=== PATIENT | male | born 1965 | race Caucasian/White ===

== ENCOUNTER 2019-01-31 17:13 | Emergency (ER) | payer OTHER ==
[~2019-01-31] VITALS: Ht 182.9 cm; Wt 69.2 kg
[~2019-01-31 17:13] MED LIST: ASPI325T32 PO; LORA1TAB PO
[2019-01-31 17:38] VITALS: Ht 182.9 cm; Wt 69.2 kg
[2019-01-31] MEDS ORDERED: KETOROLAC 30 MG INJ IM STA (20:57)
[2019-01-31] MEDS ORDERED: CEPH-443 PO (20:58)
[2019-01-31] MEDS ORDERED: IBUP-1542 PO (20:58)
[2019-01-31] MEDS ORDERED: SULF1TAB31 PO (20:58)
[2019-01-31] MEDS ORDERED: DIPHTH/TET/ACEL PERTUSS (ADULT) 0.5 ML VIAL IM* ONE (21:00)
[2019-01-31] MEDS ORDERED: CEPHALEXIN 500 MG CAP PO ONE (21:00)
[2019-01-31] MEDS ORDERED: TRIMETHOPRIM/SULFAMETHOX (DS) TAB PO ONE (21:00)
[2019-01-31 21:49] VITALS: BP 122/86; PULSE 93; RESP 20
--- NOTE | 2019-01-31 22:55 | ERD ---
ER Documentation Chief Complaint Chief Complaint RLE WOUND WITH S/S OF INFECTION HPI Patient is a 54-year-old male with no medical problems who presents with a right leg ulcer. There is redness around the ulcer. It started with bilateral leg itchiness a few days ago and he was scratching both of his legs. He then started with the ulcer and swelling. He said that it is painful. He has no fevers. He was trying alcohol in the wound. Upon review of old medical records this is the patient's fifth visit to the ER since 2009. His primary doctor is Dr. Jake Vega. ROS All systems reviewed and are negative except as per history of present illness. Medications Home Meds Active Scripts Sulfamethoxazole/Trimethoprim* (Bactrim Ds* Tablet) 1 Each Tablet, 1 TAB PO BID, #14 TAB Prov:MARIBELL CORONA MD 01/31/19 Cephalexin* (Keflex*) 500 Mg Capsule, 500 MG PO QID for 7 Days, CAP Prov:MARIBELL CORONA MD 01/31/19 Ibuprofen* (Motrin*) 600 Mg Tab, 600 MG PO Q6H PRN for PAIN AND OR ELEVATED TEMP, #30 TAB Prov:MARIBELL CORONA MD 01/31/19 Lorazepam* (Lorazepam*) 1 Mg Tablet, 1 MG PO Q8 for 7 Days, TAB Prov:MARIA ZAMARRIPA MD 07/06/15 Reported Medications Aspirin* (Aspirin* EC) 325 Mg Tab, 325 MG PO DAILY, TAB 07/06/15 Allergies Allergies: Coded Allergies: No Known Drug Allergies (Verified Allergy, Unknown, 07/06/15) PMhx/Soc Medical and Surgical Hx: pt denies Medical Hx History of Surgery: No Anesthesia Reaction: No Hx Neurological Disorder: No Hx Respiratory Disorders: No Hx Cardiac Disorders: No Hx Psychiatric Problems: No Hx Miscellaneous Medical Probl: No Hx Alcohol Use: Yes (daily) Hx Substance Use: Yes (teenage years) Hx Tobacco Use: Yes Smoking Status: Current every day smoker FmHx Family History: No diabetes Physical Exam Vitals Vital Signs Date Temp Pulse Resp B/P (MAP) Pulse Ox O2 O2 Flow FiO2 Time Delivery Rate 01/31/19 98.8 93 20 122/86 96 Room Air 21:49 (98) 01/31/19 99.2 98 16 152/82 95 17:38 (105) Physical Exam Const: No acute distress Head: Atraumatic Eyes: Normal Conjunctiva ENT: Normal External Ears, Nose and Mouth. Neck: Full range of motion. No meningismus. Resp: Clear to auscultation bilaterally Cardio: Regular rate and rhythm, no murmurs Abd: Soft, non tender, non distended. Normal bowel sounds Skin: 2 x 2 cm ulcer to the right leg with surrounding erythema consistent with cellulitis, no signs of abscess or necrotizing fasciitis Back: No midline or flank tenderness Ext: No cyanosis, or edema Neur: Awake and alert Psych: Normal Mood and Affect Results 24 hrs Current Medications Medications Dose Sig/Radha Start Time Status Last (Trade) Ordered Route PRN Stop Time Admin Dose Reason Admin Ketorolac 30 mg ONCE STAT 01/31/19 DC 01/31/19 Tromethamine IM 20:57 21:06 (Toradol) 01/31/19 20:58 1 tab ONCE ONCE 01/31/19 DC 01/31/19 Trimethoprim/ PO 21:00 21:05 01/31/19 21:01 Sulfamethoxaz ole (Bactrim (Ds)) Cephalexin 500 mg ONCE ONCE 01/31/19 DC 01/31/19 (Keflex) PO 21:00 21:05 01/31/19 21:01 Diphtheria/ 0.5 ml ONCE ONCE 01/31/19 DC 01/31/19 Tetanus/Acell IM* 21:00 21:07 Pertussis 01/31/19 21:01 (Adacel) Procedures/MDM Patient is a 54-year-old male presents with a right lower extremity cellulitis. I doubt present fasciitis or abscess. I doubt sepsis. I Believe outpatient management is appropriate. The patient will be given Bactrim and Keflex as well as ibuprofen. He will need to follow-up with his primary doctor within 48 hours for a wound check. He can return for any worsening symptoms. Smoking Cessation Therapy: Pt. was lectured for greater than 3 minutes on the health risks of continued smoking and the benefits of cessation. Departure Diagnosis: Primary Impression: Cellulitis Site of cellulitis: extremity Site of cellulitis of extremity: lower extremity Laterality: right Qualified Codes: L03.115 - Cellulitis of right lower limb Condition: Fair Patient Instructions: Cellulitis Referrals: Dr. Jake Vega Additional Instructions: Call your primary care doctor TOMORROW for an appointment during the next 1-2 days.See the doctor sooner or return here if your condition worsens before your appointment time. MARIBELL CORONA MD Jan 31, 2019 22:55
== END 2019-01-31 21:49 | disposition home or self-care (01) ==
LOC: E/R 17:13
DX: L03.115 Cellulitis of right lower limb (principal); F17.210 Nicotine dependence, cigarettes, uncomplicated; Z23 Encounter for immunization; Z79.82 Long term (current) use of aspirin
CPT/HCPCS: 90471; 90715; 96372; 99284; J1885